=== PATIENT | male | born 1990 | race Caucasian/White ===

== ENCOUNTER 2018-11-26 15:40 | Emergency (ER) | payer SELFPAY ==
[2018-11-26 16:07] VITALS: BP 134/78
--- NOTE | 2018-11-26 17:02 | UC ---
UC General HPI - HPI Summary HPI Summary: sore throat, ear pain and bodyaches x 1 day. tx with otc medications without relief. - History of Current Complaint Chief Complaint: UCGeneralIllness Stated Complaint: ST,B/L EAR COMPLAINT, JOINT ACHES Time Seen by Provider: 11/26/18 16:55 Hx Obtained From: Patient Onset/Duration: Gradual Onset Timing: Constant Pain Intensity: 4 - Allergy/Home Medications Allergies/Adverse Reactions: Allergies Allergy/AdvReac Type Severity Reaction Status Date / Time No Known Allergies Allergy Verified 11/26/18 16:07 PMH/Surg Hx/FS Hx/Imm Hx Previously Healthy: Yes - Surgical History Surgical History: None - Social History Occupation: Employed Full-time Alcohol Use: Daily Substance Use Type: None Smoking Status (MU): Never Smoked Tobacco Type: Smokeless Tobacco - Immunization History Vaccination Up to Date: Yes Review of Systems All Other Systems Reviewed And Are Negative: Yes ENT: Positive: Sore Throat, Ear Ache Musculoskeletal: Positive: Arthralgia, Myalgia Physical Exam Triage Information Reviewed: Yes Appearance: Well-Appearing Vital Signs: Initial Vital Signs Temp 99.0 F 11/26/18 16:01 Pulse 72 11/26/18 16:01 Resp 18 11/26/18 16:01 BP 134/78 11/26/18 16:01 Pulse Ox 100 11/26/18 16:01 Vital Signs Reviewed: Yes Eyes: Positive: Conjunctiva Clear ENT: Positive: Pharyngeal erythema, TMs normal, Uvula midline - with moderate swelling and erythema.. Negative: Nasal congestion, Nasal drainage, Trismus, Muffled voice, Hoarse voice Neck: Positive: Supple, Nontender, Enlarged Nodes @ - peritonsialr Respiratory: Positive: Lungs clear, Normal breath sounds Cardiovascular: Positive: RRR, No Murmur Abdomen Description: Positive: Nontender, No Organomegaly, Soft Bowel Sounds: Positive: Present Musculoskeletal: Positive: ROM Intact Neurological: Positive: Alert Psychological: Positive: Age Appropriate Behavior Skin Exam: Normal Skin: Negative: Rashes Diagnostics - Laboratory Lab Results: rapid strep=neg Course/Dx - Differential Dx - Multi-Symptom Differential Diagnoses: Other - no concern for abscess. rapid strep=negative; however, i am going to tx with antibiotic due to the ucvulitis - Diagnoses Provider Diagnosis: Pharyngitis, Uvulitis Discharge - Sign-Out/Discharge Documenting (check all that apply): Patient Departure All imaging exams completed and their final reports reviewed: No Studies - Discharge Plan Condition: Stable Disposition: HOME Prescriptions: Amoxicillin/Clavulanate TAB* [Augmentin TAB 875*] 875 mg PO BID 10 Days #20 tab Dexamethasone [Decadron] 8 mg PO DAILY 3 Days #6 tablet Patient Education Materials: Pharyngitis (ED), Uvulitis (ED) Referrals: NAHOMY Valdez [Medical Doctor] - Additional Instructions: FOLLOW UP IF NOT BETTER IN 5-7 DAYS. GO TO THE ER FOR ANY WORSENING. - Billing Disposition and Condition Condition: STABLE Disposition: Home
== END 2018-11-26 17:37 | disposition home or self-care (01) ==
LOC: UCCORT 15:40
DX: J02.9 Acute pharyngitis, unspecified (principal); K12.2 Cellulitis and abscess of mouth; M79.10 Myalgia, unspecified site
CPT/HCPCS: 87651; 99202; G0463